=== PATIENT | female | born 1985 | race Caucasian/White ===

== ENCOUNTER 2017-03-22 12:03 | Emergency (ER) | payer OTHER ==
[2017-03-22 12:08] VITALS: BP 154/81; PULSE 93; TEMP 97.5; BMI 41.5
[2017-03-22] MEDS ORDERED: DIPHTH,PERTUSS(ACELL),TET 0.5 ML DISP.SYRIN IM ONE (12:38)
[2017-03-22 13:00] LABS: BASO # 0.1 #; EOS # 0.1 #; EOS % 0.9 % (0-4.5); LYMPH # 2.9; MCH 27.1 pg (25.7-33.7); MCHC 32.5 g/dl (32.0-36.0); MEAN CELL VOLUME 83.4 fl (80-96); MEAN PLT VOLUME 7.2 fl (7.5-11.1); MONO # 0.6 #; NEUT # 4.2 #; NEUT % 53.7 % (42.8-82.8); PLATELET COUNT 383 K/MM3 (134-434); RDW 14.6 % (11.6-15.6); WHITE BLOOD COUNT 7.8 K/mm3 (4.0-10.0)
--- NOTE | 2017-03-22 13:04 | PDOC ---
Post Exposure HPI - General Chief Complaint: Blood/Body Fluid Exposure SJR Stated Complaint: EMPLOYEE, NEEDLESTICK Time Seen by Provider: 03/22/17 12:28 History Source: Patient Exam Limitations: No Limitations - History of Present Illness Initial Comments: 03/22/17 12:59 CHIEF COMPLAINT: Needlestick to left palm HISTORY OF PRESENT ILLNESS: Patient is a 31-year-old female, furniture repair technician for [employer], surgeon was passing a needle to her and she sustained a needlestick to left palm, she was noted bleeding no bleeding upon arrival however there is a visible needlestick. Her tetanus is not up-to-date. Source patient status of HIV and hepatitis is unknown I have called Dr. Aguayo to request source patient to be tested for HIV and hepatitis 03/22/17 13:05 Past History - Past Medical History Allergies/Adverse Reactions: Allergies Allergy/AdvReac Type Severity Reaction Status Date / Time Penicillins Allergy Verified 03/22/17 12:08 Home Medications: Ambulatory Orders NK [No Known Home Medication] 10/19/15 COPD: No - Suicide/Smoking/Psychosocial Hx Smoking History: Never smoked Hx Alcohol Use: Yes Drug/Substance Use Hx: No Review of Systems - Review of Systems Constitutional: No: Symptoms Reported Integumentary: Yes: Other (puncture wound to the right arm. ). No: Erythema Hematologic/Lymphatic: No: Symptoms Reported All Other Systems: Reviewed and Negative *Physical Exam - Vital Signs Last Vital Signs Temp Pulse Resp BP Pulse Ox 97.5 F L 93 H 18 154/81 99 03/22/17 12:06 03/22/17 12:06 03/22/17 12:06 03/22/17 12:06 03/22/17 12:06 - Physical Exam General Appearance: Yes: Appropriately Dressed. No: Apparent Distress Lymphatic: negative: Adenopathy Musculoskeletal: positive: Normal Inspection Extremity: positive: Other (puncture to the left palm visible with no active bleeding. ) Integumentary: positive: Normal Color, Dry. negative: Swelling, Ecchymosis, Bruising Neurologic: positive: Alert, Normal Mood/Affect Post Exposure - ED Protocol - Exposure Treatment Washing/Decontamination: Soap/Water Source Patient HIV Status:: Unknown (requested for Dr. Aguayo to test source # [id number]) Is PEP indicated?: Yes Prophylaxis for HIV discussed?: Yes Prophylaxis given?: No Prophylaxis refused?: Yes Baseline bloods drawn prophylaxis:(use *Exposure-Hosp Emp): Yes Additional Treatment:: DT - Referrals Employee Referred to Employee Health:: Yes Medical Decision Making - Medical Decision Making 03/22/17 13:08 A/P: Patient here for needlestick to left, patient is currently refusing PEP, is waiting for source patient to be tested, I have called Dr. Aguayo who will ask patient if she consents to testing. As of now Boostrix given, labs drawn, patient will follow-up with occupational medicine for results of testing and if she wants to start taking PEP. I have recommended the patient takes PEP. *DC/Admit/Observation/Transfer Diagnosis at time of Disposition: Exposure to bloodborne pathogen, Needlestick injury accident - Discharge Dispostion Disposition: HOME Condition at time of disposition: Stable Admit: No - Referrals Referrals: Adela Brown MD [Primary Care Provider] - - Patient Instructions Printed Discharge Instructions: How to Handle Body Fluid Exposure -- Healthcare Worker Additional Instructions: Please follow-up with occupational medicine for results of blood tests Your tetanus is now up-to-date, Boostrix given I have requested for Dr. Aguayo to test the source patient please follow-up to make sure to source patient is tested if unable to have a source patient tested recommend starting on PEP. - Post Discharge Activity Forms/Work/School Notes: Back to Work
[2017-03-22 13:23] LABS: ALBUMIN 3.8 g/dl (3.4-5.0); ANION GAP 6 (8-16); CALCIUM 9.2 mg/dL (8.5-10.1); CO2 28 mmol/L (21-32); CREATININE 0.5 mg/dL (0.55-1.02); GLUCOSE,RANDOM 83 mg/dL (74-106); SGOT/AST 15 U/L (15-37); SGPT/ALT 45 U/L (12-78); URIC ACID 4.7 mg/dL (2.6-7.2)
[2017-03-22 13:26] LABS: ALK PHOS 83 U/L (45-117); BILIRUBIN,TOTAL 0.2 mg/dL (0.2-1.0); CHOLESTEROL 221 mg/dL (50-200); LDH 220 U/L (84-246); PHOSPHOROUS 3.1 mg/dL (2.5-4.9); TOT PROT 8.1 g/dl (6.4-8.2)
[2017-03-22 13:35] LABS: HIV 1 & 2 AB NEGATIVE; HIV 1 AGp24 NEGATIVE
== END 2017-03-22 13:08 | disposition home or self-care (01) ==
LOC: JERFT 12:03
PROC: 3E0234Z Introduction of Serum, Toxoid and Vaccine into Muscle, Percutaneous Approach (ICD-10-PCS; principal; 2017-03-22)
DX: Z77.21 Contact with and (suspected) exposure to potentially hazardous body fluids (principal); S61.432A Puncture wound without foreign body of left hand, initial encounter; W46.1XXA Contact with contaminated hypodermic needle, initial encounter; Y93.89 Activity, other specified; Y92.234 Operating room of hospital as the place of occurrence of the external cause; Y99.0 Civilian activity done for income or pay
CPT/HCPCS: 36415; 80053; 82465; 82977; 83615; 84100; 84478; 84550; 85025; 86704; 86803; 87340; 87389; 90715; 99281-25